=== PATIENT | female | born 1990 | race African-American/Black ===

== ENCOUNTER 2017-08-20 12:35 | Outpatient (CLI) | payer OTHER ==
--- NOTE | 2017-08-20 16:44 | ULT ---
OBSTETRIC SONOGRAM 08/20/17 HISTORY: Low lying placenta. Followup. COMPARISON: 07/17/17. FINDINGS: Multiple transabdominal sonographic views of the gravid uterus show a single intrauterine gestation in cephalic presentation. The cervix is closed and 3.3 cm in length. Grade 0 placenta is posterior, now well clear of the internal cervical os. Amniotic fluid is within normal limits. Four chamber hea rt shows motion at 140 beats per minute. spine and kidneys are intact as visualized. Three ves lucia cord shows a normal insertion. No gross intracranial abnormalities are evident. Measurements are as follows: Biparietal diameter 21 weeks, 1 day Head circumference 20 weeks, 6 days Abdominal circumference 20 weeks, 2 days Femur length 20 weeks, 6 days Estimated date of delivery based on today's sonogram is 01/03/18. Hadlock percentile equals 39%. IMPRESSION: 1. Single viable intrauterine gestation with estimated gestational age based on today's sonogra m of 20 weeks, 4 days. 2. Interval regression of the lower placental margin from the cervical os. No evidence of low l adam placenta. POS: [facility]
== END 2017-08-20 12:36 | disposition home or self-care (01) ==
LOC: ULT 12:35
PROVIDERS: ATTEND Family Medicine
DX: O44.42 Low lying placenta NOS or without hemorrhage, second trimester (principal); Z3A.20 20 weeks gestation of pregnancy
CPT/HCPCS: 76805

== ENCOUNTER 2017-10-15 22:56 | Day surgery (SDC) | payer OTHER ==
[2017-10-15 23:38] LABS: #Lymphocytes 0.7 thou/uL (1.20-3.40); #Monocytes 0.2 thou/uL (0.11-0.59); #Neutrophils 4.9 thou/uL (1.40-6.50); %Eosinophils 0.6 % (0.0-10.0); %Lymphocytes 11.9 % (21.0-51.0); %Monocytes 3.4 % (0.0-10.0); Hematocrit 36.5 % (36.0-47.0); Mean Platelet Volume 8.7 fL (7.4-10.4); Red Blood Cell (RBC) Count 4.26 mill/uL (4.20-5.40); White Blood Cell (WBC) Count 5.9 thou/uL (4.8-10.8)
[2017-10-15 23:59] LABS: ALT (SGPT) 9 U/L (8-55); AST (SGOT) 14 U/L (5-34); Alkaline Phosphatase 60 U/L (40-150); Anion Gap 10 mmol/L (10-20); BUN (Urea Nitrogen) 5 mg/dL (7.0-18.7); Bilirubin, Total 0.7 mg/dL (0.2-1.2); Calc. Creatinine Clearance 0 mL/min (70-130); Calcium 8.9 mg/dL (7.8-10.44); Carbon Dioxide 23 mmol/L (22-29); Chloride 106 mmol/L (98-107); Estimated GFR-MDRD Greater than 90; Globulin 3.4 g/dL (2.4-3.5); Lipase 14 U/L (8-78); Protein, Total 6.8 g/dL (6.0-8.3)
[2017-10-16 00:40] VITALS: TEMP 99.6; BMI 48.8
[2017-10-16] MEDS ORDERED: Ondansetron HCl/PF 4 MG/2 ML Vial IVP SCH (01:15)
[2017-10-16] MEDS ORDERED: Metoclopramide HCl 10 MG/2 ML VIAL IVP SCH (01:15)
[2017-10-16] MEDS ORDERED: Lactated Ringer's 2,000 ML IV SCH (01:15)
--- NOTE | 2017-10-16 08:15 | PRG ---
DATE OF SERVICE: 10/16/2017 PRIMARY OB: Dr. Krystle Nguyen CHIEF COMPLAINT: Nausea, vomiting. HISTORY OF PRESENT ILLNESS: The patient is a 27-year-old female with an intrauterine at 28 weeks and 6 days who presented to Labor and Delivery with nausea and vomiting that began earli er in the afternoon. The patient denies any direct connection to anything that she can identify from eating. The patient reports she has been unable to keep anything down since these episodes worsened . The patient reports that she feels a little crampy, but denies any regular painful contractions, a ny leakage of fluid, any vaginal bleeding. The patient reports heartburn. PAST MEDICAL HISTORY: Hypertension, off of medications. PAST SURGICAL HISTORY: Appendectomy. ALLERGIES: No known drug allergies. OB LABS: Unavailable. MEDICATIONS: None. SOCIAL HISTORY: Denies drug, alcohol or tobacco use. REVIEW OF SYSTEMS: Per HPI. PHYSICAL EXAMINATION: VITAL SIGNS: Blood pressure 131/81, heart rate of 82, temperature 99.6. GENERAL: She appears to be in no acute distress. She is alert, oriented, and cooperative and pleasa nt to interact with. HEENT: Head is normocephalic, atraumatic. LUNGS: Clear to auscultation bilaterally. ABDOMEN: Gravid. : The patient is reported to be fingertip and long per nursing staff. heart tracing performed for threatened labor. heart tracing unable to obtain due to pat ient habitus. A BPP was performed and found to be 8/8. Tocometer showed some irritability on the m onitor with isolated contractions. ASSESSMENT AND PLAN: The patient is a 27-year-old female with a likely gastroenteritis due to food r elated or viral. The patient is going to be IV hydrated with 2 liters of lactated Ringer's, given IV Zofran and Reglan and Tums to help with her heartburn. After the patient's hydration and medication the patient was feeling a lot better and was discharged home in stable condition.
--- NOTE | 2017-10-16 08:37 | ULT ---
PRELIMINARY REPORT/[facility]/EMERGENCY AFTER HOURS PROCEDURE: EXAM: US Biophysical Profile Without Non-Stress Testing CLINICAL HISTORY: 27 years old, female; Pain and signs and symptoms; Other: Obese pt. , 28wk; Gest. Diabetes, HTN; Pain indication: Pelvic tightness; TECHNIQUE: Real-time ultrasound of the maternal pelvis for biophysical profile evaluation with image docum entation. COMPARISON: No relevant prior studies available. FINDINGS: Single living fetus in cephalic position. Biophysical profile 06/23. heart activity documented by the technologist, 136 bpm. Posterior placenta. No visible placental abnormality on the provided images. Amniotic fluid volume appears increased for gestation, SHIV 27.6 cm. Cervical length was estimated with transabdominal scanning, measuring approximately 3.0 cm. No definite cervical canal dilation or fluid on the provided images. measurements were not obtained at this time. Evaluation of anatomy was not performed at this time. No visible maternal adnexal abnormality. The urinary bladder was not completely evaluated/imaged at this time. IMPRESSION: Single living fetus, details above. Biophysical profile 06/23. Polyhydramnios/increased amniotic fluid volume, SHIV 27.6 cm. Other details discussed above. Thank you for allowing us to participate in the care of your patient. Dictated and Authenticated by: Mateo Beaulieu MD 10/16/2017 2:29 AM Central Time ([place] & [place]) FINAL REPORT EMERGENCY AFTER HOURS BIOPHYSICAL PROFILE: Date: 10/16/17 HISTORY: Pelvic pain in a patient with positive . Gestational diabetes and hypertension. IMPRESSION: 1. Single intrauterine gestation in cephalic presentation with heart tones documented. h eart rate is 136 beats/minute. 2. Placenta is located posteriorly without evidence of placenta previa. 3. Amniotic fluid index is increased, measuring 27.6 cm, suggesting polyhydramnios. 4. biophysical profile score is 8 out of 8. 5. measurements were not obtained and evaluation of anatomy was also not performed at is time. Findings are in agreement with the preliminary report by Corey. POS: [facility]
[2017-10-16] MEDS ORDERED: Calcium Carbonate 500 MG ChewTAB PO SCH (09:00)
== END 2017-10-16 03:20 | disposition home or self-care (01) ==
LOC: ERS 22:56 → L&D/OP 22:56 → EDSTATUS 23:37 → L&D/OP 10-16 03:20
PROVIDERS: ATTEND Family Medicine
DX: O99.89 Other specified diseases and conditions complicating pregnancy, childbirth and the puerperium (principal); R11.2 Nausea with vomiting, unspecified; O10.913 Unspecified pre-existing hypertension complicating pregnancy, third trimester; Z3A.28 28 weeks gestation of pregnancy; Z79.899 Other long term (current) drug therapy; Z91.013 Allergy to seafood; Z90.49 Acquired absence of other specified parts of digestive tract
CPT/HCPCS: 36415; 76819; 80053; 83690; 84702; 85025; 96360; 96361; 96375; J2405; J2765

== ENCOUNTER 2017-10-27 03:55 | Inpatient (IN) | payer MEDICAID, OTHER ==
[2017-10-27 04:27] VITALS: BMI 50.5
[2017-10-27] MEDS ORDERED: Lactated Ringer's 1,000 ML IV SCH (05:12)
[2017-10-27] MEDS ORDERED: LR / Pitocin 40 units/1000 ml 1,000 ML IV PRN (05:12)
[2017-10-27] MEDS ORDERED: Calcium Gluc 4.6 MEQ/10 ML (100 MG/ML) SLOW IVP PRN (05:12)
[2017-10-27] MEDS ORDERED: Ondansetron HCl/PF 4 MG/2 ML Vial IVP PRN ×2 (05:12→08:17)
[2017-10-27] MEDS ORDERED: Lidocaine 1% (PF) 30 ML VIAL SC PRN (05:12)
[2017-10-27] MEDS ORDERED: Promethazine HCl 25 MG/ML VIAL IM PRN (05:12)
[2017-10-27] MEDS ORDERED: Labetalol HCl 100 MG/20 ML VIAL SLOW IVP PRN (05:12)
[2017-10-27] MEDS ORDERED: Lidocaine 1% (PF) 30 ML VIAL ONE (05:19)
[2017-10-27 05:30] LABS: Hematocrit 36.9 % (36.0-47.0); Mean Platelet Volume 9.1 fL (7.4-10.4); Red Blood Cell (RBC) Count 4.27 mill/uL (4.20-5.40); White Blood Cell (WBC) Count 8.8 thou/uL (4.8-10.8)
[2017-10-27] MEDS ORDERED: Penicillin G Potassium 5 MILL.UNITS VIAL ONE (05:36)
[2017-10-27] MEDS ORDERED: Betamet Acet/Betamet Na Ph 30 MG/5 ML VIAL IM SCH (05:45)
[2017-10-27] MEDS ORDERED: Betamet Acet/Betamet Na Ph 30 MG/5 ML VIAL ONE (05:45)
[2017-10-27] MEDS ORDERED: Penicillin G Potassium 5 MILL.UNITS in Sodium Chloride 0.9% 100 ML IVPB SCH (05:45)
[2017-10-27 05:56] LABS: ALT (SGPT) 13 U/L (8-55); AST (SGOT) 14 U/L (5-34); Alkaline Phosphatase 64 U/L (40-150); Anion Gap 14 mmol/L (10-20); BUN (Urea Nitrogen) 8 mg/dL (7.0-18.7); Bilirubin, Total 0.3 mg/dL (0.2-1.2); Calc. Creatinine Clearance 248 mL/min (70-130); Calcium 9.3 mg/dL (7.8-10.44); Carbon Dioxide 22 mmol/L (22-29); Chloride 104 mmol/L (98-107); Estimated GFR-MDRD Greater than 90; Globulin 3.1 g/dL (2.4-3.5); Protein, Total 6.6 g/dL (6.0-8.3)
--- NOTE | 2017-10-27 07:06 | DN ---
DATE OF PROCEDURE: 10/27/2017 TIME OF DICTATION: 0650 PREOPERATIVE DIAGNOSES: labor at 31 weeks gestation, chronic hypertension, 8 cm on presentat ion to Labor and Delivery with category 2 heart rate tracing. POSTOPERATIVE DIAGNOSES: labor at 31 weeks gestation, chronic hypertension, 8 cm on presenta tion to Labor and Delivery with category 2 heart rate tracing. PROCEDURE: Spontaneous vaginal delivery without laceration. SURGEON: Carlos Caicedo M.D. ANESTHESIA: None. ESTIMATED BLOOD LOSS: 300 mL. COMPLICATIONS: None. SPECIMENS REMOVED: Placenta with 3-vessel cord to pathology. OPERATIVE FINDINGS: 1. Vigorous female delivered at 0635, NICU in attendance. Apgars and weight are pending. 2. Placenta delivered spontaneously within 5 minutes of delivery. Grossly normal, sent for patholog ic analysis. 3. No lacerations noted and no repair needed, counts correct x2 at the end of the procedure. DESCRIPTION OF OPERATIVE PROCEDURE: The patient had presented at approximately 0500 hours with hyper tension and contractions. She was found to be 8-9 cm with a bulging bag of water, AROM was p erformed; however, she had a fairly tight remnant cervix and was unable to push past this. At this p oint in time, the patient was administered both penicillin and betamethasone and a scalp electr ode placed for monitoring secondary to difficulty monitoring due to the patient's obesity. The patient had a category 2 heart rate tracing for approximately an hour to an hour and 15 minute s, it was marked by mild to severe variables that would return to baseline with good acceleration, sh oulders and persistent variability. Approximately 5-10 minutes prior to delivery, despite the consideration that the patient might want a n epidural, it was felt that she was probably getting close enough to delivery that time would not al low this, plus the heart rate tracing would not allow as well. I presented to the room and had the patient push once, she demonstrated rotation and descent and we stopped pushing while I was coun ting, the head crowned, the nurse and I delivered the baby and were unable to place it on the materna l abdomen for delayed cord clipping due to the short length of the cord. The baby was wrapped to denise ntain moistness and heat and kept at the perineum for approximately 60-90 seconds before delayed cord clamping was completed and then was given off to the NICU team in attendance including bakery machine mechanic . Cord blood samples obtained. Placenta delivered spontaneously approximately 3 minutes later. Ins pection of the vagina revealed no lacerations. The patient was entered into routine care.
[2017-10-27] MEDS ORDERED: Adacel (T-DAP) 0.5 ML VIAL IM ONE (08:17)
[2017-10-27] MEDS ORDERED: LR / Pitocin 40 units/1000 ml 1,000 ML IV SCH (08:17)
[2017-10-27] MEDS ORDERED: Lanolin Ointment 7 GM TUBE TOP PRN (08:17)
[2017-10-27] MEDS ORDERED: Milk Of Magnesia 30 ML UDCUP PO PRN (08:17)
[2017-10-27] MEDS ORDERED: Benzocaine/Menthol 20-0.5% 60 ML CAN TOP PRN (08:17)
[2017-10-27] MEDS ORDERED: Preparation H Ointment 28 GM TUBE PR PRN (08:17)
[2017-10-27] MEDS ORDERED: Bisacodyl 10 MG SUPP PR PRN (08:17)
[2017-10-27] MEDS ORDERED: HYDROcodone/Acetaminophen 5/325 mg Tablet PO PRN (08:17)
[2017-10-27] MEDS ORDERED: diphenhydrAMINE 25 MG CAP PO PRN (08:17)
[2017-10-27] MEDS ORDERED: Ferrous Sulfate 325 MG TAB PO SCH ×2 (08:17→08:30)
[2017-10-27] MEDS: HYDROcodone/Acetaminophen 5/325 mg Tablet PO PRN ×3 (08:29→21:13)
[2017-10-27] MEDS: Ibuprofen 800 MG TAB PO SCH ×2 (08:29→20:14)
[2017-10-27] MEDS ORDERED: Penicillin G 2.5 MILL.units 2.5 MILL.UNITS in Premix Bag 1 BAG IVPB SCH (09:00)
[2017-10-27] MEDS ORDERED: FLU VACC QS2017-18 36 mo. & older 0.5 ML SYRINGE IM ONE ×2 (09:00→21:00)
--- NOTE | 2017-10-27 10:24 | HP ---
DATE OF ADMISSION: 10/27/2017 TIME OF ADMISSION: 0515 hours REASON FOR ADMISSION: Contractions and hypertension at 30 weeks gestation. HISTORY OF PRESENT ILLNESS: Ms. Mclaughlin is a 27-year-old 4, para 3, living 3, 2, twins , , SAB 1, who is at 30 weeks for a stated VIJAY, sees Dr. Krystle Nguyen. She presents complaining of contractions for the past 10 hours. She denies rupture of membranes. She reports she has a history of chronic hypertension. She reports that she is on a baby aspirin on the day during the . ENGLISH LANGUAGE LEARNER TUTOR HISTORY: VIJAY as stated, x2, one of twins at approximately 32-34 weeks and one at term. S he has had 1 miscarriage. She states she has had an uncomplicated . PAST MEDICAL HISTORY: Significant for chronic hypertension and sickle trait. PAST SURGICAL HISTORY: Appendectomy. ALLERGIES: Denies. MEDICATIONS: Baby aspirin and vitamins. SOCIAL HISTORY: Denies tobacco, alcohol, IV drug abuse. FAMILY HISTORY: Noncontributory. REVIEW OF SYSTEMS: Noncontributory. PHYSICAL EXAMINATION: GENERAL: Black female in moderate distress. VITAL SIGNS: Blood pressure 158/82, temperature 98.6, respirations 18. HEENT: Within normal limits. LUNGS: Clear to auscultation bilaterally. HEART: Regular rhythm. BREASTS: Without masses bilaterally. ABDOMEN: Palpable contractions, moderate to severe obesity. EXTREMITIES: With trace edema. PELVIC: Vulva without lesions. The patient has a lesion on the thigh, on the right that is consiste nt with a lipoma or sebaceous cyst. It does not appear to be herpes lesion. The patient states she has no history of herpes. Vaginal exam reveals a cervix that with bulging bag in 8-9 cm. Cephalic p resentation. AROM was performed, which revealed clear fluid and a scalp electrode was placed b ecause of inability to monitor externally due to the patient's obesity. heart rate tracing is category 1. OB LABORATORY STUDIES: No OB labs available. OB record not on the labor and delivery unit. IMPRESSION: labor with a delivery likely imminent at 30-31 weeks gestation. PLAN: 1. Penicillin. 2. Betamethasone. 3. Neonatology consult. 4. Labetalol IV for greater than 60. As patient seems to have imminent delivery and no headac he or blurred vision and other labs are pending, we will not administer magnesium sulfate at this owen e. We will administer if necessary in the . Dr. Krystle Nguyen was contacted, she is not in town and has turned over the patient's care to the OB hospitalist.
[2017-10-27] MEDS: Prenatal Vitamin 1 TAB PO SCH (10:27)
[2017-10-27] MEDS: Docusate (Surfak) 240 MG CAP PO SCH ×2 (10:27→20:14)
[2017-10-27] MEDS: Ferrous Sulfate 325 MG TAB PO SCH (16:55)
[2017-10-28] MEDS: Ibuprofen 800 MG TAB PO SCH ×3 (06:20→22:25)
--- NOTE | 2017-10-28 07:24 | PRG ---
DATE OF SERVICE: 10/28/2017 PRIMARY OB: Dr. Krystle Nguyen HISTORY OF PRESENT ILLNESS: The patient is a 27-year-old female who is now day 1, status post spontaneous vaginal delivery at 31 weeks. Her past medical history is significant for chronic hypertension. Since delivery the patient's blood pressures have remained in the normal range with isolated mild range pressures. The patient reports she is tolerating p.o., voiding on her own, having decreased lochia and ambulating well. PHYSICAL EXAMINATION: VITAL SIGNS: Currently, blood pressure is 133/75, temperature 97.9, pulse of 71, respiratory rate of 20. GENERAL: She appears to be in no acute distress. She is alert and oriented, and cooperative and ple asant and interactive. HEENT: Normocephalic, atraumatic. ABDOMEN: Obese and difficult to assess, but is soft, nontender. Fundus is difficult to assess due t o habitus. EXTREMITIES: Nontender, nonedematous. LABORATORY: Predelivery hemoglobin is 12.6, hematocrit 36.9, platelets of 165,000. ASSESSMENT AND PLAN: The patient is day 1, status post a spontaneous vaginal deli very with chronic hypertension. We will continue routine care. Anticipate discharge yary moore.
[2017-10-28] MEDS: Prenatal Vitamin 1 TAB PO SCH (09:11)
[2017-10-28] MEDS: Docusate (Surfak) 240 MG CAP PO SCH ×2 (09:11→20:15)
[2017-10-28] MEDS: HYDROcodone/Acetaminophen 5/325 mg Tablet PO PRN (09:13)
[2017-10-28] MEDS: Ferrous Sulfate 325 MG TAB PO SCH ×2 (09:15→19:19)
[2017-10-29] MEDS: Ibuprofen 800 MG TAB PO SCH (06:00)
--- NOTE | 2017-10-29 06:31 | PDOC.PP ---
Post Progress Note Post Day #: 2 Subjective: Doing well. No new concerns. PO intake tolerated: yes Flatus: yes Ambulation: yes Vital Signs (12 hours) Temp Pulse Resp BP 10/29/17 04:31 137/62 10/29/17 00:27 110/57 L 10/28/17 20:05 97.9 F 72 20 132/75 Weight Weight 276 lb - Physical Examination General: NAD Cardiovascular: no m/r/g Abdominal: appropriately TTP Extremities: negative homans (B) Neurological: no gross focal deficits Psychiatric: A&Ox3 Result Diagrams: 10/27/17 05:10 10/27/17 05:10 Additional Labs: Post Labs Blood Type B POSITIVE 10/27/17 05:10 Hep Bs Antigen Non-Reactive S/CO (NonReactive) 10/27/17 05:10 Rubella IgG Antibody 1.36 index (Immune >0.99) 10/27/17 05:10 (1) Vaginal delivery Code(s): O80 - ENCOUNTER FOR FULL-TERM UNCOMPLICATED DELIVERY Status: Acute (2) anemia Code(s): O90.81 - ANEMIA OF THE PUERPERIUM Status: Acute - Assessment/Plan 1. Stable for discharge 2. Asx anemia. Continue vitamin . 3. Child remains in NICU for premature
--- NOTE | 2017-10-29 06:35 | PDOC.EVN ---
Event Note - Event Note Event Note: DISCHARGE NOTE: 10/27/2017: admission 10/29/2017: discharge Diagnosis: Active labor (30 weeks) Vaginal Delivery Services consulted: NICU Summary: Patient admitted at 30 weeks with labor and progressed to at 30 weeks. Uncomplicated course with discharge on day 2. Asymptomatic anemia.
[2017-10-29 08:31] VITALS: BP 139/81; TEMP 98.2
[2017-10-29] MEDS: Ferrous Sulfate 325 MG TAB PO SCH (09:30)
[2017-10-29] MEDS: Prenatal Vitamin 1 TAB PO SCH (09:31)
[2017-10-29] MEDS: Docusate (Surfak) 240 MG CAP PO SCH (09:31)
[2017-10-29] MEDS: HYDROcodone/Acetaminophen 5/325 mg Tablet PO PRN (09:33)
== END 2017-10-29 13:40 | disposition home or self-care (01) | DRG 775 ==
LOC: L&D/OP 03:55 → L&D 05:18 → 3SW 09:30
PROVIDERS: ADMIT Family Medicine; ATTEND Family Medicine
PROC: 10E0XZZ Delivery of Products of Conception, External Approach (ICD-10-PCS; principal; 2017-10-27)
PROC: 10907ZC Drainage of Amniotic Fluid, Therapeutic from Products of Conception, Via Natural or Artificial Opening (ICD-10-PCS; 2017-10-27)
DX: O60.14X0 Preterm labor third trimester with preterm delivery third trimester, not applicable or unspecified (principal); O16.4 Unspecified maternal hypertension, complicating childbirth; D57.3 Sickle-cell trait; Z37.0 Single live birth; Z3A.30 30 weeks gestation of pregnancy; O99.02 Anemia complicating childbirth; O99.214 Obesity complicating childbirth
CPT/HCPCS: 80053; 82731; 85027; 86762; 86780; 86850; 86900; 86901; 87340; 87389; 88307; 90471; 90682; 90715; 90732; A4216; G0008; G0009; J0702; J2001; J2540; J7050; Q2036

== ENCOUNTER 2018-04-17 09:38 | Emergency (ER) | payer OTHER, SELFPAY ==
[2018-04-17 10:07] LABS: Lavender RECEIVED; Red RECEIVED
[2018-04-17 10:10] LABS: Bilirubin Negative (Negative); Blood, Urine Large (Negative); Clarity CLOUDY (Clear); Glucose, Urine (Dipstick) >=1000 mg/dL (Negative); Leukocyte Negative (Negative); Nitrite Negative (Negative); Protein, Urine (Dipstick) Negative (Neg-Trace); Specific Gravity, Urine 1.025 (1.002-1.036); Urobilinogen 0.2 mg/dL (0.2-1.0)
[2018-04-17 10:12] LABS: #Lymphocytes 1.8 thou/uL (1.20-3.40); #Monocytes 0.3 thou/uL (0.11-0.59); #Neutrophils 2.6 thou/uL (1.40-6.50); %Basophils 0.2 % (0.0-1.0); %Eosinophils 0.9 % (0.0-10.0); %Lymphocytes 37.9 % (21.0-51.0); %Monocytes 6.1 % (0.0-10.0); %Neutrophils 54.9 % (42.0-75.0); Hemoglobin 14.1 g/dL (12.0-16.0); Mean Corpuscular Hemoglobin 29.3 pg (27.0-31.0); Mean Corpuscular Volume 83.7 fl (81.0-99.0); Mean Platelet Volume 9.4 fL (7.4-10.4); Platelet Count 152 thou/uL (130-400); Red Blood Cell (RBC) Count 4.82 mill/uL (4.20-5.40); White Blood Cell (WBC) Count 4.7 thou/uL (4.8-10.8)
[2018-04-17 10:12] LABS: Bacteria/HPF None Seen HPF (None Seen); Hyaline Casts/LPF 0-3 HYALINE CAST LPF (0-3 Hyaline); Pathc Cast-AUWi Flag 0.14 (0-2.49); RBC/HPF GREATER THAN 50-TNTC HPF (0-3); Squamous Epithelial 0-3 HPF (0-3); WBC/HPF 0-3 HPF (0-3)
[2018-04-17 10:13] LABS: Pregnancy Test - Urine (BHCG) Negative (Negative); Pregu Control Background? CLEAR/WHITE (CLR/WHITE); Pregu Control Bar Appear? YES (CONTROL BAR); Specific Gravity 1.025 (1.002-1.036)
[2018-04-17 10:31] LABS: ALT (SGPT) 17 U/L (8-55); AST (SGOT) 13 U/L (5-34); Alkaline Phosphatase 132 U/L (40-150); Anion Gap 14 mmol/L (10-20); BUN (Urea Nitrogen) 9 mg/dL (7.0-18.7); Bilirubin, Total 0.6 mg/dL (0.2-1.2); Calc. Creatinine Clearance 0 mL/min (70-130); Calcium 9.3 mg/dL (7.8-10.44); Carbon Dioxide 22 mmol/L (22-29); Chloride 98 mmol/L (98-107); Estimated GFR-MDRD 73; Globulin 2.9 g/dL (2.4-3.5); Potassium 3.9 mmol/L (3.5-5.1); Protein, Total 6.9 g/dL (6.0-8.3); Sodium 130 mmol/L (136-145)
[2018-04-17 10:38] LABS: Glucose 576 mg/dL (70-105)
--- NOTE | 2018-04-17 10:46 | CT ---
CT BRAIN WITHOUT CONTRAST: Date: 04/17/18 HISTORY: Seizure. FINDINGS: No evidence of infarct, hemorrhage, midline shift, or abnormal extra-axial fluid collections are seen . The ventricular size is normal and the basilar cisterns are patent. The bony calvarium is intact. T he visualized paranasal sinuses and mastoid air cells are well aerated. IMPRESSION: No CT evidence of acute intracranial process. POS: [facility]
[2018-04-17] MEDS ORDERED: Insulin Regular 300 UNITS/3 ML VIAL ONE (11:07)
[2018-04-17 11:26] LABS: Amphetamine Not Detected (NotDetected); Barbiturates Screen Not Detected (NotDetected); Benzodiazepine Screen Not Detected (NotDetected); Cocaine Metabolite Screen Not Detected (NotDetected); Medtox Control Line Valid? VALID (VALID); Medtox Reader # READER 1; Methadone Not Detected (NotDetected); Methamphetamine Not Detected (NotDetected); Opiate Screen Not Detected (NotDetected); Oxycodone Screen Not Detected (NotDetected); Phencyclidine (PCP) Not Detected (NotDetected); THC/Cannabinoid Screen Not Detected (NotDetected); Tricyclic Screen Not Detected (NotDetected)
== END 2018-04-17 12:43 | disposition home or self-care (01) ==
LOC: ERS 09:38
DX: E11.65 Type 2 diabetes mellitus with hyperglycemia (principal); R55 Syncope and collapse; R56.9 Unspecified convulsions; G40.909 Epilepsy, unspecified, not intractable, without status epilepticus; I10 Essential (primary) hypertension; Z79.899 Other long term (current) drug therapy
CPT/HCPCS: 36416; 70450; 80053; 80306; 81003; 81015; 81025; 84146; 85025; 96361; 96374; J1815

== ENCOUNTER 2018-11-01 10:59 | Emergency (ER) | payer SELFPAY ==
[2018-11-01 11:33] LABS: Bilirubin Negative (Negative); Blood, Urine Small (Negative); Clarity CLEAR (Clear); Glucose, Urine (Dipstick) >=1000 mg/dL (Negative); Leukocyte Moderate (Negative); Nitrite Negative (Negative); Protein, Urine (Dipstick) Negative (Neg-Trace); Specific Gravity, Urine 1.023 (1.002-1.036); Urobilinogen 0.2 mg/dL (0.2-1.0); pH, Urine 5.5 (5.0-9.0)
[2018-11-01 11:38] LABS: Bacteria/HPF Rare-Few HPF (None Seen); Hyaline Casts/LPF 0-3 HYALINE CAST LPF (0-3 Hyaline); Pathc Cast-AUWi Flag 0.14 (0-2.49); RBC/HPF 0-3 HPF (0-3); Squamous Epithelial 0-3 HPF (0-3); WBC/HPF 21-50 HPF (0-3)
[2018-11-01 11:46] LABS: Pregnancy Test - Urine (BHCG) Negative (Negative); Pregu Control Background? CLEAR/WHITE (CLR/WHITE); Pregu Control Bar Appear? YES (CONTROL BAR); Specific Gravity 1.023 (1.002-1.036)
[2018-11-01] MEDS ORDERED: Azithromycin 250 MG TAB ONE ×2 (14:13→14:18)
[2018-11-01] MEDS ORDERED: cefTRIAXone\\ROCEPHIN 250 MG VIAL ONE (14:13)
[2018-11-01] MEDS ORDERED: Lidocaine 1% PF 5 ML VIAL ONE ×2 (14:14→14:18)
[2018-11-01 15:25] LABS: #Eosinphils 0.1 thou/uL (0.0-0.7); #Lymphocytes 2.5 thou/uL (1.20-3.40); #Monocytes 0.3 thou/uL (0.11-0.59); %Basophils 0.4 % (0.0-1.0); %Eosinophils 1.8 % (0.0-10.0); %Lymphocytes 35.7 % (21.0-51.0); %Neutrophils 58.2 % (42.0-75.0); Hemoglobin 15.1 g/dL (12.0-16.0); Mean Corpuscular HGB CONC 34.3 g/dL (32.0-36.0); Mean Corpuscular Hemoglobin 28.6 pg (27.0-31.0); Mean Corpuscular Volume 83.4 fL (78.0-98.0); Platelet Count 207 thou/uL (130-400); RBC Distribution Width 12.4 % (11.5-14.5); Red Blood Cell (RBC) Count 5.29 mill/uL (4.20-5.40); White Blood Cell (WBC) Count 6.9 thou/uL (4.8-10.8)
[2018-11-01 15:46] LABS: Anion Gap 18 mmol/L (10-20); BUN (Urea Nitrogen) 9 mg/dL (7.0-18.7); Calc. Creatinine Clearance 0 mL/min (70-130); Calcium 9.4 mg/dL (7.8-10.44); Carbon Dioxide 18 mmol/L (22-29); Chloride 101 mmol/L (98-107); Estimated GFR-MDRD Greater than 90; Glucose 356 mg/dL (70-105); Potassium 4.3 mmol/L (3.5-5.1); Sodium 133 mmol/L (136-145)
[2018-11-02 22:48] LABS: Chlamydia by PCR Not Detected (NotDetected); GC by PCR Not Detected (NotDetected)
== END 2018-11-01 16:00 | disposition home or self-care (01) ==
LOC: ERS 10:59
DX: B37.3 Candidiasis of vulva and vagina (principal); N39.0 Urinary tract infection, site not specified; E11.65 Type 2 diabetes mellitus with hyperglycemia; G40.909 Epilepsy, unspecified, not intractable, without status epilepticus; I10 Essential (primary) hypertension
CPT/HCPCS: 36415; 36416; 80048; 81003; 81015; 81025; 85025; 87480; 87491; 87510; 87591; 87660; 96372; J0696; J2001

== ENCOUNTER 2018-11-09 14:41 | Emergency (ER) | payer SELFPAY | END 2018-11-09 16:10 | disposition home or self-care (01) | LOC: ERS 14:41 | DX: L25.9 Unspecified contact dermatitis, unspecified cause (principal); B37.2 Candidiasis of skin and nail; E11.9 Type 2 diabetes mellitus without complications; I10 Essential (primary) hypertension; G40.909 Epilepsy, unspecified, not intractable, without status epilepticus | CPT/HCPCS: 99282 ==

== ENCOUNTER 2018-12-30 09:02 | Emergency (ER) | payer SELFPAY | END 2018-12-30 11:19 | disposition home or self-care (01) | LOC: ERS 09:02 | DX: M25.512 Pain in left shoulder (principal); G40.909 Epilepsy, unspecified, not intractable, without status epilepticus; I10 Essential (primary) hypertension; E11.9 Type 2 diabetes mellitus without complications; Z79.899 Other long term (current) drug therapy | CPT/HCPCS: 99281 ==

== ENCOUNTER 2019-08-06 12:10 | Emergency (ER) | payer SELFPAY ==
[2019-08-06] MEDS ORDERED: ISOVUE-370 76%-LOCM 1 ML ONE (12:47)
[2019-08-06] MEDS ORDERED: Fentanyl 100 MCG/2 ML VIAL ONE (12:57)
[2019-08-06] MEDS ORDERED: Ondansetron PF 4 MG/2 ML Vial ONE (12:57)
[2019-08-06 13:00] LABS: #Eosinphils 0.1 thou/uL (0.0-0.7); #Lymphocytes 0.9 thou/uL (1.20-3.40); #Monocytes 0.3 thou/uL (0.11-0.59); #Neutrophils 8.2 thou/uL (1.40-6.50); %Basophils 0.2 % (0.0-1.0); %Eosinophils 0.9 % (0.0-10.0); %Lymphocytes 9.4 % (21.0-51.0); %Monocytes 2.7 % (0.0-10.0); %Neutrophils 86.9 % (42.0-75.0); Hemoglobin 14.2 g/dL (12.0-16.0); Mean Corpuscular HGB CONC 34.2 g/dL (32.0-36.0); Mean Corpuscular Hemoglobin 28.6 pg (27.0-31.0); Mean Corpuscular Volume 83.8 fL (78.0-98.0); Platelet Count 179 thou/uL (130-400); RBC Distribution Width 11.7 % (11.5-14.5); Red Blood Cell (RBC) Count 4.96 mill/uL (4.20-5.40); White Blood Cell (WBC) Count 9.4 thou/uL (4.8-10.8)
[2019-08-06 13:21] LABS: ALT (SGPT) 18 U/L (8-55); AST (SGOT) 11 U/L (5-34); Alkaline Phosphatase 61 U/L (40-150); Anion Gap 12 mmol/L (10-20); BUN (Urea Nitrogen) 7 mg/dL (7.0-18.7); Bilirubin, Total 0.5 mg/dL (0.2-1.2); Calc. Creatinine Clearance 0 mL/min (70-130); Calcium 8.8 mg/dL (7.8-10.44); Carbon Dioxide 22 mmol/L (22-29); Chloride 104 mmol/L (98-107); Estimated GFR-MDRD Greater than 90; Globulin 2.3 g/dL (2.4-3.5); Glucose 210 mg/dL (70-105); Lipase 12 U/L (8-78); Potassium 3.8 mmol/L (3.5-5.1); Protein, Total 6.3 g/dL (6.0-8.3); Sodium 134 mmol/L (136-145)
--- NOTE | 2019-08-06 13:49 | ULT ---
RIGHT UPPER QUADRANT ABDOMINAL PAIN. FINDINGS: The liver is borderline enlarged measuring 18 cm in craniocaudal dimensions. No focal hepatic lesion is seen. The gallbladder is incompletely distended, but no gallbladder calculus is seen. There is no gallblad maye wall thickening or pericholecystic fluid identified. The common duct measured 0.2 cm in diameter , which is within normal limits. The visualized portions of the IVC and right kidney demonstrate a normal sonographic appearance. The right kidney measures 10 cm in length. IMPRESSION: 1. Mild hepatomegaly. 2. No gallbladder calculi are seen, and the common duct is normal in caliber. POS: [facility]
[2019-08-06] MEDS ORDERED: Morphine 4 MG/ML VIAL ONE (14:01)
[2019-08-06] MEDS ORDERED: Ondansetron ODT 8 MG TAB ONE (14:01)
[2019-08-06 14:45] LABS: Bilirubin Negative (Negative); Blood, Urine Negative (Negative); Clarity Clear (Clear); Glucose, Urine (Dipstick) Normal (Negative); Leukocyte Negative Leu/uL (Negative); Nitrite 1+ (Negative); Protein, Urine (Dipstick) 70 mg/dL (Neg-Trace); RBC/HPF 0-3 HPF (0-3); Urobilinogen Normal mg/dL (Less than 2); WBC/HPF 0-3 HPF (0-3)
[2019-08-06 14:47] LABS: Pregnancy Test - Urine (BHCG) Negative (Negative); Pregu Control Background? CLEAR/WHITE (CLR/WHITE); Pregu Control Bar Appear? YES (CONTROL BAR); Specific Gravity 1.019 (1.002-1.036)
[2019-08-06 14:56] LABS: Bacteria/HPF 1+ HPF (None Seen)
--- NOTE | 2019-08-06 15:35 | CT ---
EXAM: CT abdomen and pelvis with IV contrast PROVIDED CLINICAL HISTORY: Abdominal pain COMPARISON: None FINDINGS: The visualized lung bases are free of significant opacity. The solid abdominal organs demonstrate an unremarkable CT appearance. There is no bowel dilatation, inflammatory fat stranding, free fluid or free air apparent. There is n o evidence for appendicitis. 4.4 cm right adnexal cystic structure, incompletely characterized by CT. No regional lymph node enlargement apparent. The regional major vascular structures appear unremarkab le. The osseous structures demonstrate no concerning lytic or blastic lesions. IMPRESSION: 4.4 cm right adnexal cystic structure, incompletely characterized. Recommend correlation with pelvic ultrasound.
[2019-08-06] MEDS ORDERED: Ketorolac Tromethamine 30 MG/ML VIAL ONE ×2 (16:24→16:37)
[2019-08-06] MEDS ORDERED: Mag-Al 1200 mg/1200 mg/30 ML UDCUP ONE (16:24)
[2019-08-06] MEDS ORDERED: Lidocaine 1% (PF) 30 ML VIAL ONE (16:24)
[2019-08-06] MEDS ORDERED: Lidocaine Viscous Sol 2% 15 ml UD Cup ONE (16:37)
[2019-08-06] MEDS ORDERED: Metoclopramide HCl 10 MG/2 ML VIAL ONE (17:51)
--- NOTE | 2019-08-06 18:07 | ULT ---
Pelvic ultrasound: 08/06/2019 HISTORY: Right lower quadrant pain TECHNIQUE: Multiplanar grayscale sonographic imaging of the pelvis obtained with transabdominal imagi ng. The ovaries are assessed with color flow and spectral analysis FINDINGS: The uterus measures 9.9 x 3.9 x 4.6 cm. Endometrial stripe is 4 mm, within normal limits. N o uterine mass identified. The right ovary measures approximately 5.2 x 3.7 x 4.2 cm. There is a right ovarian cyst measuring 4. 0 x 3.6 x 3.1 cm. A second right ovarian cyst measures 2.3 x 2.0 x 2.0 cm. Normal blood flow is documented within the right ovary. Left ovary measures 2.9 x 2.3 x 2.1 cm and demonstrates normal blood flow without evidence for mass. No free fluid seen in the pelvis. IMPRESSION: Right ovarian cysts, measuring up to 4 cm.
[2019-08-08 19:48] LABS: Chlamydia by PCR Not Detected (NotDetected); GC by PCR Not Detected (NotDetected)
== END 2019-08-06 18:31 | disposition home or self-care (01) ==
LOC: ERS 12:10
DX: N83.201 Unspecified ovarian cyst, right side (principal); N39.0 Urinary tract infection, site not specified; R11.10 Vomiting, unspecified; G40.909 Epilepsy, unspecified, not intractable, without status epilepticus; I10 Essential (primary) hypertension; E11.9 Type 2 diabetes mellitus without complications
CPT/HCPCS: 36415; 74177; 76705; 76856; 80053; 81003; 81015; 81025; 83690; 85025; 87480; 87491; 87510; 87591; 87660; 93976; 96372; J1885; J2001; J2270; J2405; J2765; J3010; Q9966

== ENCOUNTER 2021-03-12 17:35 | Emergency (ER) | payer SELFPAY ==
[2021-03-12] MEDS ORDERED: Ibuprofen 200 MG TAB ONE (19:23)
== END 2021-03-12 19:56 | disposition home or self-care (01) ==
LOC: ERS 17:35
DX: G56.03 Carpal tunnel syndrome, bilateral upper limbs (principal); T21.41XA Corrosion of unspecified degree of chest wall, initial encounter; T32.0 Corrosions involving less than 10% of body surface; I10 Essential (primary) hypertension; E11.9 Type 2 diabetes mellitus without complications; G40.909 Epilepsy, unspecified, not intractable, without status epilepticus
CPT/HCPCS: 99283

== ENCOUNTER 2021-08-13 05:46 | Emergency (ER) | payer SELFPAY ==
[2021-08-13 06:34] LABS: Bilirubin Negative (Negative); Blood, Urine Negative (Negative); Clarity Clear (Clear); Glucose, Urine (Dipstick) Normal (Negative); Ketone, Urine Negative (Negative); Leukocyte Negative Leu/uL (Negative); Nitrite Negative (Negative); Protein, Urine (Dipstick) Negative (Neg-Trace); Specific Gravity, Urine 1.013 (1.002-1.036); Urobilinogen 3 mg/dL (Less than 2); pH, Urine 6.5 (5.0-9.0)
[2021-08-13 06:36] LABS: Pregnancy Test - Urine (BHCG) Negative (Negative); Pregu Control Background? CLEAR/WHITE (CLR/WHITE); Pregu Control Bar Appear? YES (CONTROL BAR); Specific Gravity 1.013 (1.002-1.036)
[2021-08-13 10:57] LABS: #Eosinphils 0.1 thou/uL (0.0-0.7); #Lymphocytes 1.3 thou/uL (1.20-3.40); #Monocytes 0.2 thou/uL (0.11-0.59); #Neutrophils 2.5 thou/uL (1.40-6.50); %Basophils 0.6 % (0.0-1.0); %Eosinophils 1.7 % (0.0-10.0); %Lymphocytes 31.4 % (21.0-51.0); %Monocytes 5.4 % (0.0-10.0); %Neutrophils 60.9 % (42.0-75.0); Hemoglobin 12.5 g/dL (12.0-16.0); Mean Corpuscular HGB CONC 33.3 g/dL (32.0-36.0); Mean Corpuscular Hemoglobin 27.5 pg (27.0-31.0); Mean Corpuscular Volume 82.6 fL (78.0-98.0); Mean Platelet Volume 8.6 fL (7.4-10.4); Platelet Count 214 thou/uL (130-400); RBC Distribution Width 11.4 % (11.5-14.5); Red Blood Cell (RBC) Count 4.54 mill/uL (4.20-5.40); White Blood Cell (WBC) Count 4.1 thou/uL (4.8-10.8)
[2021-08-13] MEDS ORDERED: Ondansetron PF 4 MG/2 ML Vial ONE ×2 (10:58→10:59)
[2021-08-13 11:14] LABS: ALT (SGPT) 17 U/L (8-55); AST (SGOT) 12 U/L (5-34); Albumin 3.9 g/dL (3.5-5.0); Alkaline Phosphatase 62 U/L (40-110); Anion Gap 12 mmol/L (10-20); BUN (Urea Nitrogen) 6 mg/dL (7.0-18.7); Bilirubin, Total 0.7 mg/dL (0.2-1.2); Calc. Creatinine Clearance 0 mL/min (70-130); Calcium 8.9 mg/dL (7.8-10.44); Carbon Dioxide 26 mmol/L (22-29); Chloride 104 mmol/L (98-107); Globulin 2.8 g/dL (2.4-3.5); Glucose 136 mg/dL (70-105); Lipase 13 U/L (8-78); Potassium 3.9 mmol/L (3.5-5.1); Protein, Total 6.7 g/dL (6.0-8.3); Sodium 138 mmol/L (136-145)
[2021-08-13 21:18] LABS: SARS-CoV-2 PCR by NAA Not Detected (NotDetected)
== END 2021-08-13 14:19 | disposition home or self-care (01) ==
LOC: ERS 05:46
DX: R11.2 Nausea with vomiting, unspecified (principal); R51.9 Headache, unspecified; R07.89 Other chest pain; R10.9 Unspecified abdominal pain; I10 Essential (primary) hypertension; E11.9 Type 2 diabetes mellitus without complications; Z20.822 Contact with and (suspected) exposure to COVID-19
CPT/HCPCS: 36415; 71045; 80053; 81003; 81025; 83690; 84484; 85025; 93005; 96374; J2405; U0003; U0005

== ENCOUNTER 2022-03-24 15:21 | Emergency (ER) | payer OTHER, SELFPAY ==
[2022-03-24 16:31] LABS: #Eosinphils 0.1 thou/uL (0.0-0.7); #Lymphocytes 2.1 thou/uL (1.20-3.40); #Monocytes 0.2 thou/uL (0.11-0.59); #Neutrophils 3.7 thou/uL (1.40-6.50); %Basophils 0.3 % (0.0-1.0); %Eosinophils 1.9 % (0.0-10.0); %Lymphocytes 34.4 % (21.0-51.0); %Monocytes 3.3 % (0.0-10.0); %Neutrophils 60.2 % (42.0-75.0); Hemoglobin 13.8 g/dL (12.0-16.0); Mean Corpuscular HGB CONC 33.4 g/dL (32.0-36.0); Mean Corpuscular Hemoglobin 28.2 pg (27.0-31.0); Mean Corpuscular Volume 84.3 fL (78.0-98.0); Mean Platelet Volume 8.6 fL (7.4-10.4); Platelet Count 227 thou/uL (130-400); RBC Distribution Width 11.5 % (11.5-14.5); Red Blood Cell (RBC) Count 4.91 mill/uL (4.20-5.40); White Blood Cell (WBC) Count 6.2 thou/uL (4.8-10.8)
[2022-03-24 16:50] LABS: ALT (SGPT) 19 U/L (8-55); AST (SGOT) 13 U/L (5-34); Albumin 4.3 g/dL (3.5-5.0); Alkaline Phosphatase 73 U/L (40-110); Anion Gap 13 mmol/L (10-20); BUN (Urea Nitrogen) 8 mg/dL (7.0-18.7); Bilirubin, Total 0.5 mg/dL (0.2-1.2); Calc. Creatinine Clearance 0 mL/min (70-130); Calcium 9.6 mg/dL (7.8-10.44); Carbon Dioxide 25 mmol/L (22-29); Chloride 101 mmol/L (98-107); Globulin 3.6 g/dL (2.4-3.5); Glucose 193 mg/dL (70-105); Lipase 19 U/L (8-78); Potassium 3.9 mmol/L (3.5-5.1); Protein, Total 7.9 g/dL (6.0-8.3); Sodium 135 mmol/L (136-145)
[2022-03-24 16:58] LABS: BHCG - Serum Negative (NEGATIVE); Pregs Control Background? CLEAR/WHITE (CLR/WHITE); Pregs Control Bar Appear? YES (CONTROL BAR)
== END 2022-03-24 18:54 | disposition home or self-care (01) ==
LOC: ERS 15:21
DX: R07.89 Other chest pain (principal); R60.0 Localized edema; G40.909 Epilepsy, unspecified, not intractable, without status epilepticus; E11.9 Type 2 diabetes mellitus without complications; I10 Essential (primary) hypertension
CPT/HCPCS: 36415; 71045; 80053; 83690; 83880; 84484; 84703; 85025; 93005; 94760

== ENCOUNTER 2022-05-13 12:46 | Emergency (ER) | payer OTHER | END 2022-05-13 13:35 | disposition home or self-care (01) | LOC: ERS 12:46 | DX: B34.9 Viral infection, unspecified (principal); I10 Essential (primary) hypertension; G40.909 Epilepsy, unspecified, not intractable, without status epilepticus; E11.9 Type 2 diabetes mellitus without complications; Z79.899 Other long term (current) drug therapy; Z79.4 Long term (current) use of insulin | CPT/HCPCS: 99283 ==

== ENCOUNTER 2024-04-20 18:37 | Emergency (ER) | payer OTHER ==
[2024-04-20] MEDS ORDERED: Ondansetron PF 4 MG/2 ML Vial ONE (19:26)
[2024-04-20 19:35] LABS: #Basophils Less than 0.03 10x3/uL (0.0-0.2); %Basophils 0.3 % (0.0-1.0); %Eosinophils 1.2 % (0.0-10.0); %Lymphocytes 21.6 % (21.0-51.0); %Monocytes 4.4 % (0.0-10.0); %Neutrophils 72.4 % (42.0-75.0); Hematocrit 40.5 % (36.0-47.0); Hemoglobin 14.3 g/dL (12.0-16.0); Mean Corpuscular HGB CONC 35.3 g/dL (32.0-36.0); Mean Corpuscular Hemoglobin 28.4 pg (27.0-31.0); Mean Corpuscular Volume 80.4 fL (78.0-98.0); Mean Platelet Volume 11.3 fL (7.4-10.4); Platelet Count 252 10x3/uL (130-400); RBC Distribution Width 11.9 % (11.5-14.5); Red Blood Cell (RBC) Count 5.04 mill/uL (4.20-5.40)
[2024-04-20 20:30] LABS: Lipase 78 U/L (8-78)
[2024-04-20 20:31] LABS: Anion Gap 16 mmol/L (10-20); BUN (Urea Nitrogen) 14 mg/dL (7.0-18.7); Bilirubin, Total 0.9 mg/dL (0.2-1.2); Calc. Creatinine Clearance 0 mL/min (70-130); Calcium 9.7 mg/dL (7.6-10.4); Carbon Dioxide 21 mmol/L (22-29); Chloride 104 mmol/L (98-107); Estimated GFR 70; Glucose 260 mg/dL (70-105); Potassium 3.7 mmol/L (3.5-5.1); Sodium 137 mmol/L (136-145)
[2024-04-20 20:32] LABS: ALT (SGPT) 14 U/L (8-55); AST (SGOT) 12 U/L (5-34); Albumin 3.9 g/dL (3.5-5.0); Alkaline Phosphatase 70 U/L (40-110); Globulin 3.7 g/dL (2.4-3.5); Protein, Total 7.6 g/dL (6.0-8.3)
[2024-04-20] MEDS ORDERED: Amlodipine 5 MG TAB ONE (21:39)
== END 2024-04-20 21:50 | disposition home or self-care (01) ==
LOC: ERS 18:37
DX: R10.13 Epigastric pain (principal); R11.2 Nausea with vomiting, unspecified; I10 Essential (primary) hypertension; E11.9 Type 2 diabetes mellitus without complications
CPT/HCPCS: 36416; 80053; 83690; 85025; 93005; 96374; J2405